=== PATIENT | male | born 2000 | race Caucasian/White ===

== ENCOUNTER 2022-06-06 09:24 | Emergency (ER) | payer SELFPAY ==
--- NOTE | ~2022-06-06 | XR_ITS ---
EXAMINATION: XR lumbar spine 2-3V DATE: 06/06/2022 10:25 INDICATION: Low back pain TECHNIQUE: Anteroposterior and lateral views of the lumbar spine, and cone-down lateral view of the l umbosacral junction were obtained. COMPARISON: None. FINDINGS: There are 4 mm of anterolisthesis of L4 on L5 and 2 mm of retrolisthesis of L5 on S1. There is no fracture. The vertebral body heights and intervertebral disc spaces are normal. There is dextr ocurvature of the lumbar spine. IMPRESSION: 1. Mild lumbar spondylosis without acute findings. Reviewed, dictated and finalized at location A.
[2022-06-06 09:38] VITALS: BP 162/92; PULSE 75; RESP 16; TEMP 36.2; O2SAT 100
[2022-06-06 09:55] VITALS: BP 162/92; PULSE 75; RESP 20; TEMP 36.2; O2SAT 100
--- NOTE | 2022-06-06 10:19 | ED.GENADULT ---
HPI - General Adult General Chief complaint: Back Pain/Injury Stated complaint: Back pain Time Seen by Provider: 06/06/22 09:52 History of Present Illness HPI narrative: Ye is a 22M with no previous PMH that presented to the ED with back pain. It started 10 days ago after lifting a tire. It is a cramping pain that is getting worse. It is worse with lifting and twisting causes it to shot down the back side of both legs to behind the knee. There has been no loss of bowel or bladder control, no weakness/paralysis, and no saddle anesthesia. Related Data Allergies Allergy/AdvReac Type Severity Reaction Status Date / Time No Known Allergies Allergy Verified 06/06/22 10:03 Review of Systems Review of Systems: All systems reviewed & are unremarkable except as noted in HPI and below Exam Const: General: healthy appearing, no acute distress and alert Nutritional Appearance: well nourished HENMT: Head: normal to inspection Ears: external ears normal General nose exam: Normal external nose present Eyes: Conjunctivae: conjunctivae normal Pupils: Equal, round and reactive pupils present Neck: Neck: normal visual inspection Chest: Chest palpation & inspection: normal inspection of the chest Resp: Effort & Inspection: normal respiratory effort Cardio: Rate: regular rate Back/Spine/Pelvis: Other: Paraspinal tenderness in the lumbar region. Globally decreased ROM in the lumbar spine Skin: General skin exam: normal color Neuro: General: patient oriented x3, moves all extremities and CN's II-XI intact bilaterally Other: 5/5 strength throughout the lower extremities 2/4 patellar and achilles reflexes bilaterally Course Course Emergency Course: Given cyclobenzaprine and toradol. Ordered radiographs EXAMINATION: XR lumbar spine 2-3V DATE: 06/06/2022 10:25 INDICATION: Low back pain TECHNIQUE: Anteroposterior and lateral views of the lumbar spine, and cone-down lateral view of the lumbosacral junction were obtained. COMPARISON: None. FINDINGS: There are 4 mm of anterolisthesis of L4 on L5 and 2 mm of retrolisthesis of L5 on S1. There is no fracture. The vertebral body heights and intervertebral disc spaces are normal. There is dextrocurvature of the lumbar spine. IMPRESSION: 1. Mild lumbar spondylosis without acute findings. Vital Signs Vital signs: Vital Signs Temperature 97.2 F L 06/06/22 09:38 Pulse Rate 75 06/06/22 09:38 Respiratory Rate 16 06/06/22 09:38 Blood Pressure 162/92 H 06/06/22 09:38 Pulse Oximetry 100 06/06/22 09:38 Oxygen Delivery Room Air 06/06/22 09:38 Temperature 97.2 F L 06/06/22 09:55 Pulse Rate 67 06/06/22 10:44 Respiratory Rate 19 06/06/22 10:44 Blood Pressure 139/77 06/06/22 10:44 Pulse Oximetry 98 06/06/22 10:44 Oxygen Delivery Room Air 06/06/22 10:44 Medical Decision Making Vital Signs Vital Signs: Vital Signs Temperature 97.2 F L 06/06/22 09:38 Pulse Rate 75 06/06/22 09:38 Respiratory Rate 16 06/06/22 09:38 Blood Pressure 162/92 H 06/06/22 09:38 Pulse Oximetry 100 06/06/22 09:38 Oxygen Delivery Room Air 06/06/22 09:38 Temperature 97.2 F L 06/06/22 09:55 Pulse Rate 67 06/06/22 10:44 Respiratory Rate 19 06/06/22 10:44 Blood Pressure 139/77 06/06/22 10:44 Pulse Oximetry 98 06/06/22 10:44 Oxygen Delivery Room Air 06/06/22 10:44 Discharge Plan Discharge Clinical Impression: Lumbar radiculopathy Patient Disposition: Home, Self-Care Condition: Stable Instructions: Acute Low Back Pain (ED) Prescriptions: New cyclobenzaprine 10 mg tablet 10 mg PO TID PRN (Reason: muscle spasm) Qty: 20 0RF Follow-up/Referrals: UNKNOWN,DOCTOR [Primary Care Provider] - Stand Alone Forms: Work/School Release IP
[2022-06-06] MEDS: CYCLOBENZAPRINE HCL 10 MG TABLET PO (10:41)
[2022-06-06] MEDS: KETOROLAC 30 MG/ML VIAL (*BKC) IM (10:41)
[2022-06-06 10:44] VITALS: BP 139/77; PULSE 67; RESP 19; O2SAT 98
== END 2022-06-06 11:16 | disposition home or self-care (01) ==
PROVIDERS: Emergency Provider Family Medicine
DX: M54.16 Radiculopathy, lumbar region (principal)
CPT/HCPCS: 72100; 96372; 99283; A9270; J1885

== ENCOUNTER 2022-06-17 15:50 | Outpatient (RCR) | payer OTHER, SELFPAY ==
--- NOTE | 2022-06-17 17:57 | PTOPEVAL1 ---
Assessment and note entered by Holly Marshall DPT Evaluation Information Assessment Status Evaluation Diagnosis Dorsalgia Onset 05/27/2022 Subjective Information Pt reports that back pain began 05/27/2022 while at work. He has had back pain in the past due to sports but this is different. He had difficulty with sleeping and when using the bathroom. He reports that he was throwing a tire into a truck trailer and didn't notice pain at first but later bend down onto his knee and noticed some pain. He noted some muscle cramping that day. He has been taking an anti-inflammatory that has been helping and was also prescribed a muscle relaxer but hasn' t been taking it as much anymore. He can tell that his pain is improving but he still has some burning. He also sometimes gets some clicking in his back. He reports increased pain when sitting incorrectly. He has been working on light duty (no lifting more than 10 lbs). 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 Reported Pain Level Pain Score 3: Self Report Assessment PT Clinical Summary Pt presents to physical therapy with low and mid back pain and demonstrates decreased strength, decreased ROM, decreased mobility, hypertonicity of the lumbar musculature, and an antalgic gait. He presents with signs and symptoms consistent with potential differential diagnosis of lumbar radiculopathy and disc pathology. His current deficits make it more challenging for him to work and lift heavy objects. He was provided with an HEP focused on improving mobility and strength within his tolerance. He will benefit from skilled PT to facilitate symptom relief, improve the aforementioned impairments, and return to functional and recreational activities. Plan of Care Interventions Electrical Stimulation,Hot Pack/Cold Pack,Manual Therapy,Mechanical Traction,Neuro Re-education, Patient/Caregiver Educati,Therapeutic Activities, Therapeutic Exercise PT Services Indicated Yes Treatment Frequency and 2x week for 8 visits Duration These treatments will address the objective and functional deficits as defined above. The patient will be advanced safely and appropriately in order for the patient to progress towards his/her prior level of function. Additional exercises will be introduced and as well as a comprehensive home exercise program upon discharge, if needed, ?to ensure carryover of functional gains achieved in the clinic. This
== END 2022-06-24 13:53 | disposition home or self-care (01) ==
LOC: CHSPT 15:50
PROVIDERS: PCP Family Medicine; Visit Provider Family Medicine
DX: M54.9 Dorsalgia, unspecified (principal)
CPT/HCPCS: 97014; 97110; 97140; 97161; G0283

== ENCOUNTER 2023-08-03 22:42 | Emergency (ER) | payer SELFPAY ==
--- NOTE | 2023-08-03 22:52 | ED.GENADULT ---
HPI - General Adult General Chief complaint: Back Pain/Injury Stated complaint: Back Issues Time Seen by Provider: 08/03/23 22:50 History of Present Illness HPI narrative: Ye is a 23M with a PMH of chronic low back pain that presented to the ED with a flare up of his chronic back pain. It started he was at work. He lifted a heavy tire and it twinged a bit but after that he kneeled down and had spasms in his mid back bilaterally. There was no trauma, loss of bowel or bladder control or weakness. Pain is worse with twisting or looking down and is better with not moving. Related Data Allergies Allergy/AdvReac Type Severity Reaction Status Date / Time No Known Allergies Allergy Verified 06/08/22 07:12 Review of Systems Review of Systems: All systems reviewed & are unremarkable except as noted in HPI and below [facility] Surgical History History of knee surgery Left Meniscus Social History Social History Smoking status: Never smoker Exam Const: General: cooperative, healthy appearing, comfortable, no acute distress, well developed, alert, awake and Physically active Orientation/consciousness: oriented to person, oriented to place and oriented to time HENMT: Head: normal to inspection, normocephalic and atraumatic Ears: hearing grossly normal bilaterally and external ears normal Face/Nose/Sinus: Normal external nose present Eyes: General: appearance normal, both eyes and all related structures Periorbital: periorbital findings normal Sclera: sclerae normal Pupils: Equal, round and reactive pupils present Neck: Neck: normal visual inspection Chest: Chest palpation & inspection: normal inspection of the chest Resp: Effort & Inspection: normal respiratory effort and able to speak in complete sentences Cardio: Jugular venous distension: no JVD Back/Spine/Pelvis: Other: hypertonic paraspinal musculature in the mid back bilaterally Skin: General skin exam: normal color and no rashes or lesions noted Neuro: General: oriented to person, oriented to place and oriented to time Cranial nerves: Yes Equal, round and reactive pupils present Extrem: General: normal to inspection Course Course Emergency Course: Pain and stiffness were much improved with meds. Discharge Plan Discharge Clinical Impression: Mechanical back pain Patient Disposition: Home, Self-Care Condition: Stable Instructions: Thoracic Back Strain (ED) Prescriptions: New cyclobenzaprine 10 mg tablet 10 mg PO TID PRN (Reason: muscle spasm) Qty: 30 0RF meloxicam 15 mg tablet 15 mg PO DAILY Qty: 14 0RF Follow-up/Referrals: Kain Rhoades DO [Emergency Provider] -
[2023-08-03 22:56] VITALS: BP 145/86; PULSE 85; RESP 18; TEMP 37.1; O2SAT 98
[2023-08-03] MEDS: CYCLOBENZAPRINE HCL 10 MG TABLET PO (23:16)
[2023-08-03] MEDS: KETOROLAC 30 MG/ML VIAL (*BKC) IM (23:18)
[2023-08-03 23:46] VITALS: BP 128/76; PULSE 84; RESP 18; O2SAT 99
== END 2023-08-03 23:47 | disposition home or self-care (01) ==
PROVIDERS: Emergency Provider Family Medicine
DX: M54.50 Low back pain, unspecified (principal)
CPT/HCPCS: 96372; 99283; A9270; J1885

== ENCOUNTER 2023-12-28 20:51 | Emergency (ER) | payer OTHER, SELFPAY ==
--- NOTE | ~2023-12-28 | CT_ITS ---
EXAMINATION: CTA brain carotid DATE: 12/28/2023 22:56 INDICATION: Right eye visual disturbance. Migraine headache. TECHNIQUE: Computed tomographic angiography (CTA) of the head was performed without and with 100 mL O mnipaque-350 intravenous contrast. CTA of the neck was performed with intravenous contrast. Automated exposure control and iterative reconstruction technique were employed. The dose-length product was 1 880.70 mGy-cm. Maximum intensity projection and volume rendered 3D-reconstructions were created by ginette technologist on a separate workstation. COMPARISON: None. FINDINGS: HEAD CTA: There is no intracranial hemorrhage, acute infarction, or abnormal intracranial mass lesion . The ventricles are normal in size. There is mild mucosal thickening in the paranasal sinuses. The o rbits are normal. The mastoid air cells are normal. Right vertebral artery is dominant. There is no s ignificant stenosis of basilar artery or the posterior cerebral arteries. The posterior communicating arteries are normal. There is no significant stenosis of intracranial internal carotid arteries or a nterior or middle cerebral arteries. Anterior communicating artery is normal. There is no aneurysm. NECK CTA: There are no pathologically enlarged lymph nodes. There is no significant stenosis of the v ertebral arteries. There is no visible plaque in the proximal internal carotid arteries. There is 0% stenosis of the proximal right internal carotid artery relative to normal distal artery lumen diamete r (NASCET criteria). There is 0% stenosis of the proximal left internal carotid artery relative to no rmal distal artery lumen diameter. The bones are unremarkable. IMPRESSION: 1. Normal brain. No aneurysm or significant intracranial arterial stenosis. 2. 0% stenosis of the proximal internal carotid arteries relative to normal distal artery lumen diame ters (NASCET criteria). Reviewed, dictated and finalized at location E. IMPRESSION: 1. Normal brain. No aneurysm or significant intracranial arterial stenosis. 2. 0% stenosis of the proximal internal carotid arteries relative to normal dis shivani artery lumen diameters (NASCET criteria).
[2023-12-28 20:59] VITALS: BP 159/99; PULSE 103; RESP 18; TEMP 36.9; O2SAT 97
--- NOTE | 2023-12-28 21:34 | ED.EYEPROB ---
HPI - Eye Problem General Chief complaint: Eye Problems Stated complaint: Blurred vision in R eye Time Seen by Provider: 12/28/23 21:11 History of Present Illness HPI Narrative: Patient is a 23-year-old male who presents ER for evaluation of vision issues. Reports when he wakes up in the morning he sees a fireball on his eyes. He has minor frontal headache over last week as well. Reports he did drop a wrench on his head lipid over week ago but has been also having some intermittent eye issues and loss of peripheral vision for the last month. He was seen by an gun profiler and was told he could potentially have an aneurysm behind his eye and that he needed to see a primary care doctor. They were going to refer him to a PCP tomorrow. Patient had increasing concerns and came here for additional evaluation. No fevers or chills or sweats. No history of migraines. Visual acuity with vision of 20/40 in each eye uncorrected at this time. Reports when he see the fireball it lasts approximately 30 seconds and only in the mornings after sleeping. Patient reports he had normal intra-ocular eye pressures and a normal evaluation the chamber of his eye while at the gun profiler. Related Data Allergies Allergy/AdvReac Type Severity Reaction Status Date / Time No Known Allergies Allergy Verified 06/08/22 07:12 Review of Systems Review of Systems: All systems reviewed & are unremarkable except as noted in HPI and below Constitutional: Constitutional: Reports no additional constitutional complaints Eyes: Eyes: Reports change in vision and Denies photophobia ENT: Reports system reviewed and no additional complaints, except as documented Cardiovascular: Cardiovascular: Reports no additional cardiovascular complaints Respiratory: Respiratory: Reports no additional respiratory complaints Gastrointestinal: Gastrointestinal: Reports no additional gastrointestinal complaints [facility] Past Medical History Medical History (Updated 12/28/23 @ 23:10 by Shaheen Butcher MD) Healthy adult male Surgical History Surgical History History of knee surgery Left Meniscus Social History Social History Smoking status: Never smoker Exam Narrative: GENERAL: Well-appearing, well-nourished, and in no acute distress. HEAD: Normocephalic, atraumatic. EYES: PERRL and EOMI. ENT: Mucous membranes moist. CHEST: Clear to auscultation. No respiratory distress. HEART: Regular rate and rhythm. Normal peripheral pulses. EXTREMITIES: Normal range of motion. No edema. SKIN: Warm, dry, no rash. NEURO: Alert and oriented x3. PSYCH: Normal mood and affect. Course Course Emergency Course: Informed of CTA results. Discharge home. Recommend establishing care with PCP. Will give on-call PCP information. Patient may need migraine headache workup. Vital Signs Vital signs: Vital Signs Temperature 98.4 F 12/28/23 20:59 Pulse Rate 103 H 12/28/23 20:59 Respiratory Rate 18 12/28/23 20:59 Blood Pressure 159/99 H 12/28/23 20:59 Pulse Oximetry 97 12/28/23 20:59 Oxygen Delivery Room Air 12/28/23 20:59 Temperature 98.4 F 12/28/23 20:59 Pulse Rate 103 H 12/28/23 20:59 Respiratory Rate 18 12/28/23 20:59 Blood Pressure 159/99 H 12/28/23 20:59 Pulse Oximetry 97 12/28/23 20:59 Oxygen Delivery Room Air 12/28/23 20:59 MDM - Eye Problem Lab Data 12/28/23 21:51 Labs: Lab Results 12/28/23 Range/Units 21:51 Creatinine 1.10 (0.7-1.3) mg/dL Estim Creat Clear Calc 110 ml/min Estimated GFR > 60 (59 - ) Imaging Data Radiologist's impression: ITS Impressions Head/Neck CTA 12/28/23 22:56 IMPRESSION: 1. Normal brain. No aneurysm or significant intracranial arterial stenosis. 2. 0% stenosis of the proximal internal carotid arteries relative to normal distal artery yumiko
[2023-12-28] MEDS: SODIUM CHLORIDE 0.9% IV 1,000 ML 999 ML IV CONT (21:49)
[2023-12-28] MEDS: KETOROLAC 30 MG/ML VIAL (*BKC) IV PUSH (21:50)
[2023-12-28 22:05] LABS: Estimated CRCL calculation 110 ml/min; Estimated Glomerular Filt Rate > 60
[2023-12-28 23:21] VITALS: BP 142/89; PULSE 89; RESP 18; O2SAT 100
== END 2023-12-28 23:21 | disposition home or self-care (01) ==
PROVIDERS: Emergency Provider Emergency Medicine
DX: H53.8 Other visual disturbances (principal)
CPT/HCPCS: 36415; 70496; 70498; 82565; 96361; 96374; 99284; J1885; J7030; Q9967

== ENCOUNTER 2024-10-12 17:59 | Emergency (ER) | payer OTHER, SELFPAY ==
[2024-10-12 18:00] VITALS: BP 152/115; PULSE 90; RESP 16; TEMP 36.6; O2SAT 100
--- OUTSIDE RECORDS SUMMARY | 2024-10-12 18:01 | XMS_ITS | Clinical Summary ---
Author Organization [facility] Address [address] [place] [address]. [place], [place] [id number] [place] [id number] Care Team Providers Care Surveillance Supervisor Name Role Phone Unavailable Primary Care Provider Unavailabl e Social History Tobacco Use Types Packs/Day Years Used Date Smoking Tobacco: Never Assessed Sex and Gender Information Value Date Recorded Sex Assigned at Not on file Legal Sex Male 4:47 PM CDT Gender Identity Not on file Sexual Orientation Not on file Plan of Treatment Health Maintenance Due Date Last Done Comments Annual Physical 2001 HPV Vaccines (1 - Male 3-dos e series) 2013 Hepatitis C 2016 DTaP, Tdap and Td Vaccines ( 1 - Tdap) 2017 Hepatitis B Vaccines (1 of 3 - 19+ 3-dose series) 2017 COVID-19 Vaccine ( - 2023-2 5 season) 2024 Influenza Adult (#1) 2024 Meningococcal B Vaccine Aged Out No l onger eligible based on patient's age to complete this topic Meningococcal Vaccine Aged Out No mear sadi eligible based on patient's age to complete this topic Pneumococcal Vaccine: Pediat rics (0 to 5 Years) and At-Risk Patients (6 to 64 Years) Aged Out No longer eligible b ased on patient's age to complete this topic RSV Immunizations Under 20 Months Aged Out No longer eligible based on patient's age to complete this topic
--- OUTSIDE RECORDS SUMMARY | 2024-10-12 18:01 | XMS_ITS | Continuity of Care Document ---
Author Organization [facility] Address [address] [place] [address] Phone Care Team Providers Care Brace Maker Name Role Phone Alec Solis MD Unavailable Unavailable Allergies, Adverse Reactions, Alerts Substance Reaction Status Criticality No Known allergies Procedures Procedure Date Eye Exam, New Patient No Charge Refraction Advance Directives Directive Yes / No Effective Date File Name Resuscitation Not Answered N/A N/A Life Support Not Answered N/A N/A Intubation Not Answered N/A N/A Antibiotics Not Answered N/A N/A IV Fluid Support Not Answered N/A N/A Tube Feed Not Answered N/A N/A Other Directive N/A N/A WARNING:The information contained in this section is historical and is provided for information only and does not constitute a legal document or any assurance that the information is still accurate. Please verify the information with the monet of the legal document before using it for clinical purposes. Encounters Encounter Description Practice Location Reason(s) For Visit Diagnoses Date Provider Providers Copied on Encounter [facility], [address] [place] [address] [address], [place], [place], [id number], [place] tel:[phone] SEC Fer LARA Professional No Information 3 Irma Michael. [address] [facility], [address], [place], [place], [id number], [place]. tel:[phone] [facility], [address] [place] [address] [address], [place], [place], [id number], [place] tel:[phone] SEC Fer [place] Professional a comprehensive exam (chief complaint)a comprehensive exam (chief complaint) MYOPIA 3 Irma Michael. [address] [facility] [place], [id number], [place]. tel:[phone] Referring Provider: Alec Oliver, [address] [facility] [address], [place], [address] . tel:[phone] Family History Family Member Type Diagnosis Age At Onset Aunt Problem (finding) Retinal Disease Aunt Problem (finding) Diabetes mellitus Problem (finding) Aunt Problem (finding) glaucoma Grandmother Problem (finding) Diabetes mellitus Payers Payer name Insurance type Covered constitution party ID Authoriza tion(s) Medicaid [facility] [id number] Social History Type Description Quantity Date Captured Comments Alcohol Use Details No Caffeine Use Details 1 Energy Drink per day Mar Tobacco Use Status No Information Smoking Status No Information Sex Male Chief Complaint And Reason For Visit No Information Reason For Referral Reason For Referral No Information History Of Present Illness Encounter Date Complaint History Of Prese nt Illness No Information Functional Status Date Functional Assessmen t No Information Instructions Date Instruction Additional Infor mation - prn Related to Myopi a minimal myope - glasses optional -declines Related to Myopia Assessments Type Assessment Date No Information Patient Care Teams Name Effective Dates (start - stop) Status Members No Information
--- OUTSIDE RECORDS SUMMARY | 2024-10-12 18:23 | XMS_ITS | Continuity of Care Document ---
Author Organization [facility] Address [address] [place] [address] Phone Care Team Providers Care Pastry Cook Apprentice Name Role Phone Alec Solis MD Unavailable [...] Diagnoses Date Provider Providers Copied on Encounter [facility], [address] [place] [address] [address], [place], [place], [id number], [place] tel:[phone] SEC Fer LARA Professional No Information 3 Irma Michael. [address] [facility], [address], [place], [place], [address], [place]. tel:[phone] [facility], [address] [place] [address] [address], [place], [place], [id number], [place] tel:[phone] SEC Fer [place] Professional a comprehensive exam (chief complaint)a comprehensive exam (chief complaint) MYOPIA 3 Irma Michael. [address] [facility], [facility] [place], [id number], [place]. tel:[phone] Referring Provider: Alec Oliver, [address] [facility] [address], [place], [address] . tel:[phone] Family History Family Member Type Diagnosis Age At Onset Aunt Problem (finding) Retinal Disease Aunt Problem (finding) Diabetes mellitus Problem (finding) Aunt Problem (finding) glaucoma Grandmother Problem (finding) Diabetes mellitus Payers Payer name Insurance type Covered democrat ID Authoriza tion(s) Medicaid [facility] [id number] Social History Type Description Quantity Date Captured [...]
--- OUTSIDE RECORDS SUMMARY | 2024-10-12 18:23 | XMS_ITS | Clinical Summary ---
Author Organization [facility] Address [address] [place] [address]. [place], [place] [address] [place] [address] Care Team Providers Care School Counselor Name Role Phone Unavailable Primary Care Provider [...] this topic Meningococcal Vaccine Aged Out No mera sadi eligible based on patient's age to [...]
[2024-10-12 18:49] VITALS: BP 143/96; PULSE 66; RESP 16; TEMP 36.6; O2SAT 100
--- NOTE | 2024-10-12 19:30 | ED_ITS ---
HPI - Dental/Oral General Chief complaint: Dental/Oral Stated complaint: R FACE/DENTAL/EAR PAIN Time Seen by Provider: 10/12/24 18:17 Source: patient Mode of arrival: ambulatory Limitations: no limitations History of Present Illness HPI Narrative: This is a 24-year-old male that presents to the emergency department for dental pain. Started today. Denies fevers, erythema, or edema. MD Complaint: tooth pain Location: Tooth # (6) Related Data Allergies Allergy/AdvReac Type Severity Reaction Status Date / Time No Known Allergies Allergy Verified 10/12/24 17:59 Review of Systems Review of Systems: CONSTITUTIONAL: Denies fever ENT: Reports dentalgia All systems reviewed & are unremarkable except as noted in HPI and below [facility] Past Medical History Medical History (Updated 10/12/24 @ 19:33 by Mirian Alberts PA-C) Healthy adult male Surgical History Surgical History History of knee surgery Left Meniscus Social History Social History Smoking status: Never smoker Exam Narrative: GENERAL: Well-appearing, well-nourished, and in no acute distress. HEAD: Normocephalic, atraumatic. EYES: EOMI. ENT: Nares clear, no rhinorrhea or epistaxis. Mucous membranes moist. Oropharynx without tonsillar hypertrophy exudate or other lesions. Bilateral TMs pearly srinivasan non-bulging. Tooth #6 tender to palpation without surrounding edema or fluctuance to suggest abscess NECK: Supple. No adenopathy or masses. CHEST: No respiratory distress. EXTREMITIES: Normal range of motion. No edema. SKIN: Warm, dry, no rash. NEURO: No focal deficits. Alert and oriented x3. PSYCH: Normal mood and affect Course Course Emergency Course: Patient agrees with plan of care Vital Signs Vital signs: Vital Signs Temperature 98 F 10/12/24 18:00 Pulse Rate 90 10/12/24 18:00 Respiratory Rate 16 10/12/24 18:00 Blood Pressure 152/115 H 10/12/24 18:00 Pulse Oximetry 100 10/12/24 18:00 Temperature 97.8 F 10/12/24 18:49 Pulse Rate 66 10/12/24 18:49 Respiratory Rate 16 10/12/24 18:49 Blood Pressure 143/96 H 10/12/24 18:49 Pulse Oximetry 100 10/12/24 18:49 MDM - Dental/Oral MDM Narrative Medical decision making narrative: Patient presents the emergency department for dentalgia. No abscess on exam. Patient will be started on oral antibiotics. Instructed to have close follow-up with a dentist. He was given warnings to return to the ER Differential Diagnosis Differential diagnosis: Likely toothache and dental abscess Critical Care Time Critical Care Time Critical Care Time: No Discharge Plan Discharge Clinical Impression: Toothache Patient Disposition: Home, Self-Care Condition: Stable Instructions: Antibiotic Form, Toothache (ED) Additional Instructions: Return to the Emergency Department if you experience fever >101, increasing swelling and redness of your tooth, or any other symptoms that are concerning to you Take antibiotic as prescribed. Tylenol or Ibuprofen as needed for pain. You can apply a dab of clove oil to a Qtip and apply to the tooth to help numb the area Follow up with your dentist Patient Language: Irish Prescriptions: New amoxicillin-pot clavulanate 875-125 mg tablet 1 tablet PO Q12H 10 Days Qty: 20 0RF No Action cyclobenzaprine 10 mg tablet 10 mg PO TID PRN (Reason: muscle spasm) Qty: 30 0RF meloxicam 15 mg tablet 15 mg PO DAILY Qty: 14 0RF Follow-up/Referrals: PHYSICIAN,TELECOMMUNICATIONS REPAIRER [Primary Care Provider] -
[2024-10-12 20:04] VITALS: BP 141/91; PULSE 63; RESP 18; O2SAT 100
== END 2024-10-12 20:06 | disposition home or self-care (01) ==
PROVIDERS: Emergency Provider Physician Assistant
DX: K08.89 Other specified disorders of teeth and supporting structures (principal)
CPT/HCPCS: 99283

== ENCOUNTER 2024-10-13 10:44 | Emergency (ER) | payer OTHER, SELFPAY ==
--- OUTSIDE RECORDS SUMMARY | 2024-10-13 10:45 | XMS_ITS | Continuity of Care Document ---
Author Organization [facility] Address [address] [place] [address] Phone Care Team Providers Care Associate Professor Of Forestry Name Role Phone Alec Solis MD Unavailable [...] Diagnoses Date Provider Providers Copied on Encounter [facility], [address] [place] [address] [address], [place], [place], [id number], [place] tel:[phone] SEC Fer LARA Professional No Information 3 Irma Michael. [address] [facility], [address], [place], [place], [address], [place]. tel:[phone] [facility], [address] [place] [address] [address], [place], [place], [address], [place] tel:[phone] SEC Fer [place] Professional a comprehensive exam (chief complaint)a comprehensive exam (chief complaint) MYOPIA 3 Irma Michael. [address] [facility] [place], [address], [place]. tel:[phone] Referring Provider: Alec Oliver, [address] [facility] [address], [place], [address] . tel:[phone] Family History Family Member Type Diagnosis Age At Onset Aunt Problem (finding) Retinal Disease Aunt Problem (finding) Diabetes mellitus Problem (finding) Aunt Problem (finding) glaucoma Grandmother Problem (finding) Diabetes mellitus Payers Payer name Insurance type Covered alliance party ID Authoriza tion(s) Medicaid [facility] [id number] Social History Type Description Quantity Date Captured [...]
--- OUTSIDE RECORDS SUMMARY | 2024-10-13 10:45 | XMS_ITS | Clinical Summary ---
Author Organization [facility] Address [address] [place] [address]. [place], [place] [id number] [place] [address] Care Team Providers Care Surveying Crew Rodman Name Role Phone Unavailable Primary Care Provider [...]
[2024-10-13 10:52] VITALS: BP 158/105; PULSE 86; RESP 20; TEMP 36.9; O2SAT 100
[2024-10-13 10:53] VITALS: O2SAT 100
--- NOTE | 2024-10-13 10:53 | PC.NURSE ---
covid culture sent to lab
--- OUTSIDE RECORDS SUMMARY | 2024-10-13 11:25 | XMS_ITS | Clinical Summary ---
Author Organization [facility] Address [address] [place] [address]. [place], [place] [address] [place] [address] Care Team Providers Care Energy Engineer Name Role Phone Unavailable Primary Care Provider [...]
--- OUTSIDE RECORDS SUMMARY | 2024-10-13 11:25 | XMS_ITS | Continuity of Care Document ---
Author Organization [facility] Address [address] [place] [address] Phone Care Team Providers Care Legend Maker Name Role Phone Alec Solis MD [...] Diagnoses Date Provider Providers Copied on Encounter [facility], [address] [place] [address] [address], [place], [place], [address], [place] tel:[phone] SEC Fer LARA Professional No Information 3 Irma Michael. [address] [facility], [address], [place], [place], [address], [place]. tel:[phone] [facility], [address] [place] [address] [address], [place], [place], [address], [place] tel:[phone] SEC Fer [place] Professional a comprehensive exam (chief complaint)a comprehensive exam (chief complaint) MYOPIA 3 Irma Michael. [address] [facility], [facility] [place], [address], [place]. tel:[phone] Referring Provider: Alec Oliver, [address] [facility], [place], [address] . tel:[phone] Family History Family Member Type Diagnosis Age At Onset Aunt Problem (finding) Retinal Disease Aunt Problem (finding) Diabetes mellitus Problem (finding) Aunt Problem (finding) glaucoma Grandmother Problem (finding) Diabetes mellitus Payers Payer name Insurance type Covered democrat ID Authoriza tion(s) Medicaid [facility] [id number] Social History Type Description Quantity Date Captured [...]
[2024-10-13] MEDS: KETOROLAC (*BKC) 60 MG/2 ML VIAL IM (11:54)
[2024-10-13] MEDS: ONDANSETRON HCL ODT 4 MG TABLET PO (11:54)
[2024-10-13 12:13] LABS: Strep Group A RT-PCR NOT DETECTED (Negative)
[2024-10-13 12:20] LABS: Influenza A QL RT-PCR Negative (Negative); Influenza B QL RT-PCR Negative (Negative); RSV RNA, RT-PCR Negative (Negative); SARS-CoV-2 RNA PCR Negative (Negative)
[2024-10-13 12:57] VITALS: BP 133/80; PULSE 79; RESP 20; TEMP 36.6; O2SAT 99
--- NOTE | 2024-10-13 13:09 | ED_ITS ---
HPI - URI/Sore Throat General Chief Complaint: Dental/Oral Stated Complaint: dental pain Time Seen by Provider: 10/13/24 10:48 Source: patient Mode of arrival: ambulatory Limitations: no limitations History of Present Illness HPI Narrative: Patient is a 24-year-old male with right upper dental pain as well as maxillary pain and super orbital pain. This has been going on for the past week. He went [facility] last night and they said it was toothache and wrote for amoxicillin. He did not start the amoxicillin at this point. MD elicited complaint: sinus pain and other ( Right upper dental pain) Pertinent past history: other ( negative) Onset (ago): week(s) (1) Consistency: constant Severity: moderate Pain scale (0-10): 8 Description of mucous: clear Able to tolerate fluids by mouth: Yes Exacerbating factors: nothing Relieving factors: nothing Context: other ( patient has been having right upper dental pain and maxillary pain for the past week) Associated symptoms: headache, nasal congestion and sore throat Treatments prior to arrival: none Related Data Allergies Allergy/AdvReac Type Severity Reaction Status Date / Time No Known Allergies Allergy Verified 10/13/24 10:45 Review of Systems Review of Systems: All systems reviewed & are unremarkable except as noted in HPI and below Constitutional: Constitutional: Reports no additional constitutional complaints Eyes: Eyes: Reports no additional eye complaints ENT: Reports system reviewed and no additional complaints, except as documented Cardiovascular: Cardiovascular: Reports no additional cardiovascular complaints Respiratory: Respiratory: Reports no additional respiratory complaints Gastrointestinal: Gastrointestinal: Reports no additional gastrointestinal complaints Genitourinary: Genitourinary: Reports no additional male genitourinary complaints Musculoskeletal: Musculoskeletal: Reports no additional musculoskeletal complaints Integumentary/Breasts: Skin/Breast: Reports system reviewed and no additional complaints, except as docu Neurologic: Reports system reviewed and no additional complaints, except as documented Psychiatric: Psychiatric: Reports no additional psychiatric complaints Endocrine: Endocrine: Reports no additional endocrine complaints Hematologic/Lymphatic: Hematologic/Lymphatic: Reports no additional hem atologic/lymphatic complaints Allergic/Immunologic: Allergic/Immunologic: Reports no additional allergic/immunologic complaints [facility] Past Medical History Medical History Healthy adult male Surgical History Surgical History History of knee surgery Left Meniscus Social History Social History Smoking status: Never smoker Exam Const: General: healthy appearing Nutritional Appearance: well nourished Orientation/consciousness: patient oriented x3 HENMT: Head: normal to inspection Ears: external ears normal Face/Nose/Sinus: Normal external nose present Other: pain in the right dental area from the midline only posteriorly without any dental changes or gum changes; normal tympanic membranes; tender sinuses on the right maxilla Eyes: Conjunctivae: conjunctivae normal Pupils: Equal, round and reactive pupils present EOM: EOMs intact bilaterally Neck: Neck: normal visual inspection Chest: Chest palpation & inspection: normal inspection of the chest Resp: Effort & Inspection: normal respiratory effort and not labored Auscultation: clear to auscultation bilaterally and no crackles Cardio: Rate: regular rate Rhythm: regular rhythm Heart sounds: no murmurs GI: Inspection: non-distended GI Palp: Yes Soft to palpation and No Tenderness to palpation present (GI) Auscultation: normal bowel sounds : General: Yes bladder normal to palpation Back/Spine/Pelvis: Back: no CVA tenderness Skin: General skin exam: normal color Rashes: no rashes Wounds: no wounds Neuro: General: patient oriented x3 Cranial nerves: Yes Nystagmus not present Speech: normal speech Extrem: General: normal to inspection Psych: Mental Status: mental status grossly normal Affect: normal affect Attitude: cooperative Course Vital Signs Vital signs: Vital Signs Temperature 36.9 C 10/13/24 10:52 Pulse Rate 86 10/13/24 10:52 Respiratory Rate 20 10/13/24 10:52 Blood Pressure 158/105 H 10/13/24 10:52 Pulse Oximetry 100 10/13/24 10:52 Oxygen Delivery Room Air 10/13/24 10:52 Temperature 36.6 C 10/13/24 12:57 Pulse Rate 79 10/13/24 12:57 Respiratory Rate 20 10/13/24 12:57 Blood Pressure 133/80 10/13/24 12:57 Pulse Oximetry 99 10/13/24 12:57 Oxygen Delivery Room Air 10/13/24 12:57 MDM - URI/Sore Throat MDM Narrative Medical decision making narrative: patient is a 24-year-old male with right upper dental pain that extends into the right face. This appears to be sinusitis more than toothache. We will give Augmentin and prednisone. He is not to fill the amoxicillin given by the other hospital last night. Lab Data Attestation: I reviewed the patient's lab results. Labs: Lab Results 10/13/24 Range/Units 10:49 Influenza A (RT-PCR) Negative (Negative) Influenza B (RT-PCR) Negative (Negative) RSV (RT-PCR) Negative (Negative) SARS-CoV-2 RNA (RT-PCR) Negative (Negative) Group A Strep (PCR) Not detected (Negative) Discharge Plan Discharge Clinical Impression: Sinusitis Qualifiers: Sinusitis location: maxillary Chronicity: acute Recurrence: non-recurrent Qualified Code(s): J01.00 - Acute maxillary sinusitis, unspecified Patient Disposition: Home, Self-Care Condition: Stable Instructions: Antibiotic Form, Sinusitis (ED) Patient Language: Equ[place] Gu[place]an Prescriptions: New amoxicillin-pot clavulanate 875-125 mg tablet 1 tablet PO BID 10 Days Qty: 20 0RF prednisone 20 mg tablet 40 mg PO DAILY 4 Days Qty: 8 0RF No Action cyclobenzaprine 10 mg tablet 10 mg PO TID PRN (Reason: muscle spasm) Qty: 30 0RF meloxicam 15 mg tablet 15 mg PO DAILY Qty: 14 0RF amoxicillin-pot clavulanate 875-125 mg tablet 1 tablet PO Q12H 10 Days Qty: 20 0RF Follow-up/Referrals: UNKNOWN,DOCTOR [Primary Care Provider] - Time of Disposition: 13:08
[2024-10-13 13:23] VITALS: BP 133/80; PULSE 79; RESP 20; TEMP 36.6; O2SAT 99
== END 2024-10-13 13:23 | disposition home or self-care (01) ==
PROVIDERS: Emergency Provider Emergency Medicine
DX: J01.00 Acute maxillary sinusitis, unspecified (principal); Z20.822 Contact with and (suspected) exposure to COVID-19
CPT/HCPCS: 87637; 87651; 96372; 99283; A9270; J1885

== ENCOUNTER 2024-10-27 14:27 | Emergency (ER) | payer OTHER, SELFPAY ==
--- NOTE | ~2024-10-27 | CT_ITS ---
EXAMINATION: CT sinus wo con DATE: 10/27/2024 15:14 INDICATION: Right maxillary sinus pain TECHNIQUE: Computed tomography (CT) of the paranasal sinuses was performed without intravenous contra st. Coronal reconstructions were obtained. Iterative reconstruction technique was employed. The dose- length product was 205.51 mGy-cm. COMPARISON: None FINDINGS: Mucosal thickening in the floor of the right maxillary sinus. Minimal mucoperiosteal thickening in th e bilateral ethmoid sinuses. Remainder the paranasal sinuses as well as the mastoid air cells and mid dle ear cavities are clear. Bilateral ostiomeatal units are patent. Mild rightward deviation of the n aishwarya septum with inferior right-sided spike. Orbits are normal. There is a large dental Breanna involvi ng the posterior most left maxillary molar. IMPRESSION: 1. Mild mucosal thickening in the inferior right maxillary sinus with minimal mucoperiosteal thickeni ng the ethmoid sinuses. 2. Large dental caries involving the posterior most right maxillary molar. Reviewed, dictated and finalized at location A. L ROUTE CARRIER IMPRESSION: 1. Mild mucosal thickening in the inferior right maxillary sinus with minimal m ucoperiosteal thickening the ethmoid sinuses. 2. Large dental caries involving the posterior most right maxillary molar.
[2024-10-27 14:29] VITALS: BP 159/89; PULSE 108; RESP 16; TEMP 36.8; O2SAT 100
--- OUTSIDE RECORDS SUMMARY | 2024-10-27 14:29 | XMS_ITS | Clinical Summary ---
Author Organization [facility] Address [facility] [place] [address] Care Team Providers Care Juice Packaging Machines Setter Name Role Phone Unavailable Primary Care Provider [...]
--- OUTSIDE RECORDS SUMMARY | 2024-10-27 14:29 | XMS_ITS | Continuity of Care Document ---
Author Organization [facility] Address [address] [place] [address] Phone Care Team Providers Care Nail Galvanizer Name Role Phone Alec Solis MD Unavailable [...] Diagnoses Date Provider Providers Copied on Encounter [facility], [address] [place] [address] [address], [place], [place], [address], [place] tel:[phone] SEC Fer LARA Professional No Information 3 Irma Michael. [address] [facility], [address], [place], [place], [address], [place]. tel:[phone] [facility], [address] [place] [address] [address], [place], [place], [address], [place] tel:[phone] SEC [place] Professional a comprehensive exam (chief complaint)a comprehensive exam (chief complaint) MYOPIA 3 Irma Michael. [address] [facility], [facility] [place], [place], [address], [place]. tel:[phone] Referring Provider: Alec Oliver, [address] [facility], [place], [address] . tel:[phone] Family History Family Member Type Diagnosis Age At Onset Aunt Problem (finding) Retinal Disease Aunt Problem (finding) Diabetes mellitus Problem (finding) Aunt Problem (finding) glaucoma Grandmother Problem (finding) Diabetes mellitus Payers Payer name Insurance type Covered libertarian ID Authoriza tion(s) Medicaid [facility] [id number] Social History Type Description Quantity Date Captured [...]
--- NOTE | 2024-10-27 14:43 | ED.DENTAL ---
HPI - Dental/Oral General Chief complaint: Dental/Oral Stated complaint: dental pain Time Seen by Provider: 10/27/24 14:42 Source: patient Mode of arrival: ambulatory Limitations: no limitations History of Present Illness HPI Narrative: 24-year-old male with a history of dental pain, maxillary sinusitis presents to the ED with 2 week history of -- right maxillary pain which radiates to the right periorbital region and the right jaw. The patient was seen in [facility] on 10/12/2024 and prescribed amoxicillin. Subsequently he presented to our ED on 10/13/2024 and received Augmentin and prednisone for maxillary sinusitis. Subsequently he saw his primary care physician on 10/21/2024 and was prescribed cephalexin and clindamycin. The patient presents with ongoing right cheek/ maxillary pain which radiates to eyes, ears and mandible. No fever or chills. Onset (ago): week(s) ( Two weeks) Duration: constant Severity: severe Relieving factors: nothing Exacerbating factors: nothing Context: history of dental caries Treatment prior to arrival: none Related Data Allergies Allergy/AdvReac Type Severity Reaction Status Date / Time No Known Allergies Allergy Verified 10/27/24 14:28 Review of Systems Review of Systems: All systems reviewed & are unremarkable except as noted in HPI and below [facility] Past Medical History Medical History Healthy adult male Surgical History Surgical History History of knee surgery Left Meniscus Social History Social History Smoking status: Never smoker Exam Narrative: afebrile. Blood pressure of 159/89 with a heart rate of 108. Const: General: no acute distress Nutritional Appearance: well nourished Orientation/consciousness: patient oriented x3 Limitations: no limitations HENMT: Head: normal to inspection Ears: external ears normal Face/Nose/Sinus: Normal external nose present Face and sinus: normal facial exam and sinus tenderness ( Tenderness over the right maxillary sinus.) maxillary Mouth: Yes Normal oral and palatal mucosa present Throat: posterior oropharynx normal Eyes: Conjunctivae: conjunctivae normal Pupils: Equal, round and reactive pupils present EOM: EOMs intact bilaterally Neck: Neck: normal visual inspection, no lymphadenopathy and no meningeal signs Chest: Chest palpation & inspection: normal inspection of the chest Resp: Effort & Inspection: normal respiratory effort Auscultation: clear to auscultation bilaterally Cardio: Rate: regular rate Rhythm: regular rhythm GI: Auscultation: normal bowel sounds Other: No tenderness/ rigidity /rebound. : General: Yes no CVA tenderness Back/Spine/Pelvis: Back: no CVA tenderness Skin: General skin exam: normal color Rashes: no rashes Wounds: no wounds Neuro: General: patient oriented x3, moves all extremities, no meningeal signs, no focal motor deficits and CN's II-XI intact bilaterally Cranial nerves: Yes Nystagmus not present Speech: normal speech Gait exam (Neuro): Normal gait present Extrem: General: normal to inspection and no clubbing, cyanosis or edema Psych: Mental Status: mental status grossly normal Affect: normal affect Attitude: cooperative Course Course Emergency Course: Right maxillary sinusitis-- in view of the recurrent sinusitis got a CT of the sinuses which revealed minimal mucosal thickening of the inferior maxillary sinus. The patient has severe dental caries of the right maxillary posterior most molar. headache Vital Signs Vital signs: Vital Signs Temperature 36.8 C 10/27/24 14:29 Pulse Rate 108 H 10/27/24 14:29 Respiratory Rate 16 10/27/24 14:29 Blood Pressure 159/89 H 10/27/24 14:29 Pulse Oximetry 100 10/27/24 14:29 Oxygen Delivery Room Air 10/27/24 14:29 Temperature 36.8 C 10/27/24 14:29 Pulse Rate 108 H 10/27/24 14:29 Respiratory Rate 16 10/27/24 14:29 Blood Pressure 159/89 H 10/27/24 14:29 Pulse Oximetry 100 10/27/24 14:29 Oxygen Delivery Room Air 10/27/24 14:29 MDM - Dental/Oral MDM Narrative Medical decision making narrative: Dental caries dental pain Differential Diagnosis Differential diagnosis: Likely gingival abscess and dental caries Medical Records Attestation: I reviewed the patient's medical records. Lab Data Attestation: I reviewed the patient's lab results. Discharge Plan Discharge Clinical Impression: Dental caries, Toothache Patient Disposition: Home, Self-Care Condition: Stable Instructions: Antibiotic Form, Toothache (ED) Patient Language: Lithuanian Prescriptions: No Action amoxicillin-pot clavulanate 875-125 mg tablet 1 tablet PO BID 10 Days Qty: 20 0RF prednisone 20 mg tablet 40 mg PO DAILY 4 Days Qty: 8 0RF cyclobenzaprine 10 mg tablet 10 mg PO TID PRN (Reason: muscle spasm) Qty: 30 0RF meloxicam 15 mg tablet 15 mg PO DAILY Qty: 14 0RF amoxicillin-pot clavulanate 875-125 mg tablet 1 tablet PO Q12H 10 Days Qty: 20 0RF Follow-up/Referrals: UNKNOWN,DOCTOR [Non-Staff] - Stand Alone Forms: Work/School Release IP Time of Disposition: 15:38
--- OUTSIDE RECORDS SUMMARY | 2024-10-27 15:05 | XMS_ITS | Clinical Summary ---
Author Organization [facility] Address [facility] [place] [address] Care Team Providers Care Laundry Tech Name Role Phone Unavailable Primary Care Provider [...]
--- OUTSIDE RECORDS SUMMARY | 2024-10-27 15:05 | XMS_ITS | Continuity of Care Document ---
Author Organization [facility] Address [address] [place] [address] Phone Care Team Providers Care Paint Stripper Name Role Phone Alec Solis MD Unavailable [...] Diagnoses Date Provider Providers Copied on Encounter [facility], [address] [place] [address] [address], [place], [place], [address], [place] tel:[phone] SEC Fer LARA Professional No Information 3 Irma Michael. [address] [facility], [address], [place], [place], [address], [place]. tel:[phone] [facility], [address] [place] [address] [address], [place], [place], [address], [place] tel:[phone] SEC [place] Professional a comprehensive exam (chief complaint)a comprehensive exam (chief complaint) MYOPIA 3 Irma Michael. [address] [facility], [facility] [place], [address], [place]. tel:[phone] Referring Provider: Alec Oliver, [address] [facility] [address], [place], [address] . tel:[phone] Family History Family Member Type Diagnosis Age At Onset Aunt Problem (finding) Retinal Disease Aunt Problem (finding) Diabetes mellitus Problem (finding) Aunt Problem (finding) glaucoma Grandmother Problem (finding) Diabetes mellitus Payers Payer name Insurance type Covered constitution party ID Authoriza tion(s) Medicaid [facility] [id number] Social History Type Description Quantity Date Captured [...]
[2024-10-27] MEDS: KETOROLAC 30 MG/ML VIAL (*BKC) IM (15:22)
[2024-10-27 15:46] VITALS: BP 150/97; PULSE 91; RESP 20; TEMP 36.6; O2SAT 97
[2024-10-27] MEDS: HYDROcodone/acetaminophen (*CRX) 5-325 MG TABLET 1 TAB PO (15:51)
[2024-10-27 15:53] VITALS: BP 150/97; PULSE 91; RESP 20; TEMP 36.6; O2SAT 97
== END 2024-10-27 15:53 | disposition home or self-care (01) ==
PROVIDERS: Emergency Provider Internal Medicine Critical Care Medicine; PCP Emergency Medicine
DX: K02.9 Dental caries, unspecified (principal)
CPT/HCPCS: 70486; 96372; 99284; A9270; J1885

== ENCOUNTER 2024-12-25 17:40 | Emergency (ER) | payer OTHER, SELFPAY ==
--- NOTE | ~2024-12-25 | XR_ITS ---
CHEST RADIOGRAPH CLINICAL HISTORY: cough with bloody sputum . COMPARISON: None available TECHNIQUE: Single portable view of the chest. FINDINGS The cardiomediastinal silhouette is unremarkable. The lungs are clear. Visualized osseous structures and soft tissues are unremarkable. IMPRESSION: No focal infiltrate or effusion. Reviewed, dictated and finalized at location A.
[2024-12-25 17:40] VITALS: BP 152/98; PULSE 93; RESP 20; TEMP 36.6; O2SAT 97
--- OUTSIDE RECORDS SUMMARY | 2024-12-25 17:50 | XMS_ITS | Clinical Summary ---
Author Organization [facility] Address [facility] [place] [address] Care Team Providers Care Sole Painter Name Role Phone Unavailable Primary Care Provider [...] Vaccine ( - 2023-2 5 season) 2024 Meningococcal B Vaccine Aged Out No l onger eligible based on patient's age to complete this topic Meningococcal Vaccine Aged Out No mera sadi eligible based on patient's age to complete this topic Pneumococcal Vaccine: Pediat rics (0 to 5 Years) and At-Risk Patients (6 to 49 Years) Aged Out No longer eligible b ased on patient's age to complete this topic RSV Immunizations Under 20 Months Aged Out No longer eligible based on patient's age to complete this topic
--- OUTSIDE RECORDS SUMMARY | 2024-12-25 17:51 | XMS_ITS | Continuity of Care Document ---
Author Organization [facility] Address [address] [place] [address] Phone Care Team Providers Care Nurse Rn Bsn Name Role Phone Alec Solis MD Unavailable [...] Date Provider Providers Copied on Encounter [facility], [address] [place] [address] [address], [place], [place], [id number], [place] tel:[phone] SEC Fer LARA Professional No Information 3 Irma Michael. [address] [facility], [address], [place], [place], [id number], [place]. tel:[phone] [facility], [address], [place], [place], [id number], [place] tel:[phone] [address] [place] Professional MYOPIA 3 rIma Michael. [address] [place], [place], [id number], . tel:[phone] Referring Provider: Alec Oliver, [address] [place], [address] . tel:[phone] Family History Family Member Type Diagnosis Age At Onset Aunt Problem (finding) Retinal Disease Aunt Problem (finding) Diabetes mellitus Problem (finding) Aunt Problem (finding) glaucoma Grandmother Problem (finding) Diabetes mellitus Payers Payer name Insurance type Covered democrat ID Authoriza tion(s) Medicaid [facility] [id number] Social History Type Description Quantity Date Captured [...]
--- NOTE | 2024-12-25 17:57 | ED.URI ---
HPI - URI/Sore Throat General Chief Complaint: Upper Respiratory Infection Stated Complaint: cough x1week left eye drainage Source: patient Mode of arrival: ambulatory Limitations: no limitations History of Present Illness HPI Narrative: 24-year-old male smoker presents to the ED with a one-week history of -- cough which is productive of mucopurulent sputum -- left eye drainage-- which is mucopurulent. Left eye pain and photophobia. MD elicited complaint: cough Onset (ago): day(s) ( Seven days) Consistency: constant Description of mucous: yellow Able to tolerate fluids by mouth: Yes Exacerbating factors: nothing Relieving factors: nothing Associated symptoms: denies other symptoms, cough and shortness of breath Treatments prior to arrival: none Related Data Allergies Allergy/AdvReac Type Severity Reaction Status Date / Time No Known Allergies Allergy Verified 12/25/24 18:05 Review of Systems Review of Systems: All systems reviewed & are unremarkable except as noted in HPI and below Constitutional: Constitutional: Reports as per HPI and Reports no additional constitutional complaints Eyes: Eyes: Reports as per HPI Comments: left eye foreign body sensation with pain and photophobia. He had some mucopurulent exudate on the inner ENT: Reports system reviewed and no additional complaints, except as documented and Reports as per HPI Cardiovascular: Cardiovascular: Reports as per HPI and Reports no additional cardiovascular complaints Respiratory: Respiratory: Reports as per HPI, Reports no additional respiratory complaints, Reports cough, Reports dyspnea and Reports wheezing Gastrointestinal: Gastrointestinal: Reports as per HPI and Reports no additional gastrointestinal complaints Genitourinary: Genitourinary: Reports no additional male genitourinary complaints and Reports as per HPI Musculoskeletal: Musculoskeletal: Reports no additional musculoskeletal complaints and Reports as per HPI Integumentary/Breasts: Skin/Breast: Reports system reviewed and no additional complaints, except as docu and Reports as per HPI Neurologic: Reports system reviewed and no additional complaints, except as documented and Reports as per HPI Psychiatric: Psychiatric: Reports no additional psychiatric complaints and Reports as per HPI Endocrine: Endocrine: Reports no additional endocrine complaints and Reports as per HPI Hematologic/Lymphatic: Hematologic/Lymphatic: Reports no additional hematologic/lymphatic complaints and Reports as per HPI Allergic/Immunologic: Allergic/Immunologic: Reports no additional allergic/immunologic complaints and Reports as per HPI [facility] Past Medical History Medical History Healthy adult male Surgical History Surgical History History of knee surgery Left Meniscus Social History Social History (Updated 12/25/24 @ 18:12 by Osman Lujan MD) Social History: Smoker Smoking status: Never smoker Exam Narrative: blood pressure 152/98. Oxygen saturation of 97% on room. Const: General: no acute distress Nutritional Appearance: well nourished Orientation/consciousness: patient oriented x3 Limitations: no limitations HENMT: Head: normal to inspection Ears: external ears normal Face/Nose/Sinus: Normal external nose present Face and sinus: normal facial exam Mouth: Yes Normal oral and palatal mucosa present Throat: posterior oropharynx normal Eyes: Pupils: Equal, round and reactive pupils present EOM: EOMs intact bilaterally Direct Ophthalmoscopy: photophobia Other: Left eye-- conjunctival erythema. No foreign body noted. Anterior chamber is clear. Unable to do a funduscopic examination. Neck: Neck: normal visual inspection and no lymphadenopathy Chest: Chest palpation & inspection: normal inspection of the chest and abnormal inspection of the chest Resp: Effort & Inspection: tachypneic Auscultation: rhonchi, wheezes and diminished lung sounds Cardio: Rate: regular rate Rhythm: regular rhythm GI: GI Palp: Yes Soft to palpation Auscultation: normal bowel sounds : General: Yes no CVA tenderness Back/Spine/Pelvis: Back: no CVA tenderness Cervical Spine: collar present Skin: General skin exam: normal color Rashes: no rashes Wounds: no wounds Neuro: General: patient oriented x3, moves all extremities, no meningeal signs, no focal motor deficits and CN's II-XI intact bilaterally Cranial nerves: Yes Nystagmus not present Speech: normal speech Extrem: General: normal to inspection, no clubbing, cyanosis or edema and no pedal edema Psych: Mental Status: mental status grossly normal Affect: normal affect Attitude: cooperative Course Course Emergency Course: Left eye conjunctivitis bronchitis with bronchospasm- Patient had a chest x-ray which did not show any infiltrates evidence of CHF. Bronchospasm improved after DuoNeb treatment. patient has a history of bronchodilator use as a child. He thinks he had asthma as a child and grew out of it. he has been a smoker since age 11. Unsure whether this is bronchitis with bronchospasm versus asthma exacerbation. Would give steroids. Upper respiratory tract infection-- patient tested negative for RSV / influenza / COVID and strep. Vital Signs Vital signs: Vital Signs Temperature 36.6 C 12/25/24 17:40 Pulse Rate 93 12/25/24 17:40 Respiratory Rate 20 12/25/24 17:40 Blood Pressure 152/98 H 12/25/24 17:40 Pulse Oximetry 97 12/25/24 17:40 Oxygen Delivery Room Air 12/25/24 17:40 Temperature 36.6 C 12/25/24 17:40 Pulse Rate 94 12/25/24 18:40 Respiratory Rate 20 12/25/24 18:40 Blood Pressure 152/98 H 12/25/24 17:40 Pulse Oximetry 97 12/25/24 18:40 Oxygen Delivery Room Air 12/25/24 17:40 MDM - URI/Sore Throat MDM Narrative Medical decision making narrative: left eye conjunctivitis bronchitis with bronchospasm upper respiratory tract i Medical Records Attestation: I reviewed the patient's medical records. Lab Data Attestation: I reviewed the patient's lab results. Labs: Lab Results 12/25/24 Range/Units 17:45 Influenza A (RT-PCR) Negative (Negative) Influenza B (RT-PCR) Negative (Negative) RSV (RT-PCR) Negative (Negative) SARS-CoV-2 RNA (RT-PCR) Negative (Negative) Group A Strep (PCR) Not detected (Negative) Discharge Plan Discharge Clinical Impression: Upper respiratory infection, Bronchitis with bronchospasm, Conjunctivitis Patient Disposition: Home Condition: Stable Instructions: Antibiotic Form, Acute Bronchitis (ED), Bronchospasm (ED), Conjunctivitis (ED) Patient Language: Dutch Prescriptions: New azithromycin [Zithromax] 250 mg tablet See Rx Instructions .ROUTE .COMPLEX Qty: 6 0RF Rx Instructions: For 250 mg dose pack: take 500 mg today (day 1), then 250 mg for 4 days (days 2-5) albuterol sulfate [Ventolin HFA] 90 mcg/actuation HFA aerosol inhaler 1 puff inhalation QID PRN (Reason: shortness of breath or wheezing) Qty: 6.7 0RF gentamicin 0.3 % drops 2 drp LEFT EYE Q4H Qty: 5 0RF prednisone 20 mg tablet 20 mg PO BID Qty: 10 0RF Follow-up/Referrals: Manny Pierce MD [Primary Care Provider] - Time of Disposition: 19:08
[2024-12-25 18:13] VITALS: PULSE 93; RESP 20; O2SAT 97
[2024-12-25] MEDS: IPRATROPIUM 0.5 MG/ALBUTEROL SULFATE 2.5 MG AMPUL.NEB 3 ML INHALATION (18:19)
[2024-12-25 18:21] LABS: Strep Group A RT-PCR NOT DETECTED (Negative)
--- OUTSIDE RECORDS SUMMARY | 2024-12-25 18:23 | XMS_ITS | Continuity of Care Document ---
Author Organization [facility] Address [address] [place] [address] Phone Care Team Providers Care Light Armored Reconnaissance Officer Name Role Phone Alec Solis MD Unavailable [...] Diagnoses Date Provider Providers Copied on Encounter [facility], [address] [place] [address] [address], [place], [place], [id number], [place] tel:[phone] SEC Fer LARA Professional No Information 3 Irma Michael. [address] [facility], [address], [place], [place], [address], [place]. tel:[phone] [facility], [address], [place], [place], [id number], [place] tel:[phone] [address] [place] Professional MYOPIA 3 Irma Michael. [address] [place], [place], [id number], . tel:[phone] Referring Provider: Alec Oliver, [address] [place], [address] . tel:[phone] Family History Family Member Type Diagnosis Age At Onset Aunt Problem (finding) Retinal Disease Aunt Problem (finding) Diabetes mellitus Problem (finding) Aunt Problem (finding) glaucoma Grandmother Problem (finding) Diabetes mellitus Payers Payer name Insurance type Covered green party ID Authoriza tion(s) Medicaid [facility] [id number] Social History Type Description Quantity Date Captured [...]
--- OUTSIDE RECORDS SUMMARY | 2024-12-25 18:23 | XMS_ITS | Clinical Summary ---
Author Organization [facility] Address [facility] [place] [address] Care Team Providers Care Metal Wire Coating Operator Name Role Phone Unavailable Primary Care Provider [...]
[2024-12-25 18:32] LABS: Influenza A QL RT-PCR Negative (Negative); Influenza B QL RT-PCR Negative (Negative); RSV RNA, RT-PCR Negative (Negative); SARS-CoV-2 RNA PCR Negative (Negative)
[2024-12-25 18:40] VITALS: PULSE 94; RESP 20; O2SAT 97
--- NOTE | 2024-12-25 19:01 | PC.NURSE ---
report to bradford aquino
== END 2024-12-25 19:28 | disposition home or self-care (01) ==
PROVIDERS: Emergency Provider Internal Medicine Critical Care Medicine; PCP Internal Medicine
DX: J06.9 Acute upper respiratory infection, unspecified (principal); J40 Bronchitis, not specified as acute or chronic; H10.9 Unspecified conjunctivitis; Z20.822 Contact with and (suspected) exposure to COVID-19
CPT/HCPCS: 71045; 87637; 87651; 94640; 99283

== ENCOUNTER 2025-08-13 00:56 | Emergency (ER) | payer OTHER, SELFPAY ==
[2025-08-13 00:56] VITALS: BP 179/103; PULSE 110; RESP 20; TEMP 36.4; O2SAT 98
[2025-08-13] MEDS: LIDOCAINE 1% LOCAL INJ 10 ML VIAL 5 ML INFILTRATE (01:12)
--- NOTE | 2025-08-13 01:22 | ED.DENTAL ---
HPI - Dental/Oral General Chief complaint: Dental/Oral Stated complaint: mouth pain Time Seen by Provider: 08/13/25 01:02 Source: patient Mode of arrival: EMS Limitations: no limitations History of Present Illness HPI Narrative: 25-year-old relatively healthy here with a complains of sudden onset of dental pain for past few minutes. Patient states that he woke up from sleep severe pain. He states he has a Fx tooth and has not seen the drntist in the recent past . MD Complaint: tooth pain Location: Tooth # (1) Onset (ago): minute(s) (30) Duration: constant Severity: severe Severity scale (1-10): >10 Relieving factors: nothing Exacerbating factors: nothing Context: history of dental caries Treatment prior to arrival: none Related Data Allergies Allergy/AdvReac Type Severity Reaction Status Date / Time No Known Allergies Allergy Verified 08/13/25 01:02 Review of Systems Review of Systems: All systems reviewed & are unremarkable except as noted in HPI and below Constitutional: Constitutional: Reports no additional constitutional complaints Eyes: Eyes: Reports no additional eye complaints ENT: Reports as per HPI Cardiovascular: Cardiovascular: Reports no additional cardiovascular complaints Respiratory: Respiratory: Reports no additional respiratory complaints Gastrointestinal: Gastrointestinal: Reports no additional gastrointestinal complaints Musculoskeletal: Musculoskeletal: Reports no additional musculoskeletal complaints Integumentary/Breasts: Skin/Breast: Reports system reviewed and no additional complaints, except as docu Neurologic: Reports system reviewed and no additional complaints, except as documented PMFSH Past Medical History Medical History Healthy adult male Surgical History Surgical History History of knee surgery Left Meniscus Social History Social History Social History: Smoker Smoking status: Never smoker Exam Narrative: GENERAL: Well-appearing, well-nourished, and in no acute distress. HEAD: Normocephalic, atraumatic. EYES: PERRLA and EOMI. ENT: Nares clear, no rhinorrhea or epistaxis. Mucous membranes moist.Dental caries # 1 , no abscess NECK: Supple. CHEST: Clear to auscultation. No respiratory distress. HEART: Regular rate and rhythm. No murmur heard. Normal peripheral pulses. EXTREMITIES: Normal range of motion. No edema. SKIN: Warm, dry, no rash. NEURO: No focal deficits. Alert and oriented x3. PSYCH: Normal mood and affect. Course Course Emergency Course: pt feeling better after dental block with Lidocaine Vital Signs Vital signs: Vital Signs Temperature 36.4 C L 08/13/25 00:56 Pulse Rate 110 H 08/13/25 00:56 Respiratory Rate 20 08/13/25 00:56 Blood Pressure 179/103 H 08/13/25 00:56 Pulse Oximetry 98 08/13/25 00:56 Oxygen Delivery Room Air 08/13/25 00:56 Temperature 36.4 C L 08/13/25 00:56 Pulse Rate 110 H 08/13/25 00:56 Respiratory Rate 20 08/13/25 00:56 Blood Pressure 179/103 H 08/13/25 00:56 Pulse Oximetry 98 08/13/25 00:56 Oxygen Delivery Room Air 08/13/25 00:56 Procedures Other Procedure Procedure 1: Other Procedure: dental block given with 1% lidocaine in the gum , tolerated well MDM Differential Diagnosis Differential Diagnosis: dental caries , abscess , FX tooth Discharge Plan Discharge Clinical Impression: Toothache Patient Disposition: Home Condition: Stable Instructions: Antibiotic Form, Toothache (ED) Additional Instructions: Take antibiotic as prescribed , follow with Dentist Patient Language: Frisian Prescriptions: New hydrocodone-acetaminophen 5-325 mg tablet 1 tablet PO Q8H PRN (Reason: pain) Qty: 14 0RF amoxicillin 875 mg tablet 875 mg PO Q12H 7 Days Qty: 14 0RF Follow-up/Referrals: Manny Pierce MD [Primary Care Provider, Internal Medicine] Stand Alone Forms: Work/School Release IP Time of Disposition: :26
[2025-08-13] MEDS: HYDROcodone/acetaminophen (*CRX) 5-325 MG TABLET 1 TAB PO (01:30)
[2025-08-13 02:11] VITALS: BP 155/78; PULSE 78; RESP 18; O2SAT 98
== END 2025-08-13 02:11 | disposition home or self-care (01) ==
LOC: CHSED 01:29
PROVIDERS: Emergency Provider Family Medicine; PCP Internal Medicine
DX: K08.89 Other specified disorders of teeth and supporting structures (principal); K03.81 Cracked tooth
CPT/HCPCS: 64400; 99283; A9270; J2003

== ENCOUNTER 2025-09-04 10:10 | Emergency (ER) | payer OTHER, SELFPAY ==
[2025-09-04 10:10] VITALS: BP 147/97; PULSE 118; RESP 18; TEMP 36.3; O2SAT 96; O2SAT 99
--- NOTE | 2025-09-04 10:25 | ED_ITS ---
HPI - General Adult General Chief complaint: Upper Respiratory Infection Stated complaint: throat and ear pain Time Seen by Provider: 09/04/25 10:19 History of Present Illness HPI narrative: Ye is a 25M with a PMH of low back pain that presented to the ED with over a week of sore throat, congestions, cough, fatigue, fevers on and off and sinus pain. No dyspnea or CP. Related Data Allergies Allergy/AdvReac Type Severity Reaction Status Date / Time No Known Allergies Allergy Verified 09/04/25 10:21 Review of Systems Review of Systems: All systems reviewed & are unremarkable except as noted in HPI and below [facility] Past Medical History Medical History Healthy adult male Surgical History Surgical History History of knee surgery Left Meniscus Social History Social History Social History: Smoker Smoking status: Never smoker Exam Const: General: cooperative, healthy appearing, comfortable, no acute distress, well developed, alert, awake and Physically active Orientation/c onsciousness: oriented to person, oriented to place and oriented to time HENMT: Head: normal to inspection, normocephalic and atraumatic Ears: hearing grossly normal bilaterally and external ears normal Face/Nose/Sinus: Normal external nose present Eyes: General: appearance normal, both eyes and all related structures Periorbital: periorbital findings normal Sclera: sclerae normal Pupils: Equal, round and reactive pupils present Neck: Neck: normal visual inspection Chest: Chest palpation & inspection: normal inspection of the chest Resp: Effort & Inspection: normal respiratory effort, able to speak in complete sentences and no respiratory distress Auscultation: clear to auscultation bilaterally Cardio: Jugular venous distension: no JVD Rate: regular rate Rhythm: regular rhythm Skin: General skin exam: normal color and no rashes or lesions noted Neuro: General: oriented to person, oriented to place and oriented to time Cranial nerves: Yes Equal, round and reactive pupils present Extrem: General: normal to inspection Course Course Emergency Course: viral testing negative Vital Signs Vital signs: Vital Signs Temperature 97.3 F L 09/04/25 10:10 Pulse Rate 118 H 09/04/25 10:10 Respiratory Rate 18 09/04/25 10:10 Blood Pressure 147/97 H 09/04/25 10:10 Pulse Oximetry 96 09/04/25 10:10 Oxygen Delivery Room Air 09/04/25 10:10 Temperature 97.3 F L 09/04/25 10:10 Pulse Rate 118 H 09/04/25 10:10 Respiratory Rate 18 09/04/25 10:10 Blood Pressure 147/97 H 09/04/25 10:10 Pulse Oximetry 99 09/04/25 10:10 Oxygen Delivery Room Air 09/04/25 10:10 MDM Differential Diagnosis Differential Diagnosis: Sinusitis vs URI vs COVID vs FLU Lab Data Labs: Lab Results 09/04/25 Range/Units 10:32 Influenza A (RT-PCR) Negative (Negative) Influenza B (RT-PCR) Negative (Negative) RSV (RT-PCR) Negative (Negative) SARS-CoV-2 RNA (RT-PCR) Negative (Negative) Group A Strep (PCR) Not detected (Negative) Discharge Plan Discharge Clinical Impression: Sinusitis Patient Disposition: Home Condition: Stable Instructions: Sinusitis (ED) Patient Language: Sami Prescriptions: New amoxicillin-pot clavulanate 875-125 mg tablet 1 tablet PO Q12H Qty: 10 0RF No Action hydrocodone-acetaminophen 5-325 mg tablet 1 tablet PO Q8H PRN (Reason: pain) Qty: 14 0RF amoxicillin 875 mg tablet 875 mg PO Q12H 7 Days Qty: 14 0RF Follow-up/Referrals: UNKNOWN,DOCTOR [Non-Staff]
--- OUTSIDE RECORDS SUMMARY | 2025-09-04 10:44 | XMS_ITS | Clinical Summary ---
Author Organization [facility] Address [facility] [place] [address] Care Team Providers Care Farmworker Dairy Name Role Phone Unavailable Primary Care Provider [...] Date Last Done Comments Annual Physical 2001 Hepatitis C 2016 DTaP, Tdap and Td Vaccines ( 1 - Tdap) 2017 Hepatitis B Vaccines (1 of 3 - 19+ 3-dose series) 2017 HPV Vaccines (1 - 3-dose SCD M series) 2025 COVID-19 Vaccine (1 - 2024-2 6 season) 2025 Influenza Adult (#1) 2025 Hepatitis A Vaccines Aged Out No long er eligible based on patient's age to complete this topic Meningococcal B Vaccine Aged Out No l [...]
[2025-09-04 11:02] LABS: Strep Group A RT-PCR NOT DETECTED (Negative)
[2025-09-04 11:14] LABS: Influenza A QL RT-PCR Negative (Negative); Influenza B QL RT-PCR Negative (Negative); RSV RNA, RT-PCR Negative (Negative); SARS-CoV-2 RNA PCR Negative (Negative)
[2025-09-04 11:30] VITALS: BP 135/92; PULSE 95; RESP 18; TEMP 36.6; O2SAT 99
== END 2025-09-04 11:30 | disposition home or self-care (01) ==
PROVIDERS: Emergency Provider Family Medicine; Referring Provider Family Medicine
DX: J32.9 Chronic sinusitis, unspecified (principal); Z20.822 Contact with and (suspected) exposure to COVID-19
CPT/HCPCS: 87637; 87651; 99283; A9270